=== PATIENT | female | born 1975 | race Hispanic/Latino ===

== ENCOUNTER 2024-01-30 22:43 | Emergency (ER) | payer OTHER, SELFPAY ==
[2024-01-30 22:44] VITALS: BP 136/100
[2024-01-30 22:58] VITALS: BP 123/83
[2024-01-30 23:00] VITALS: BP 127/86
--- NOTE | 2024-01-30 23:12 | ED.GENMED ---
History of Present Illness
<MARGARETH Watts - Last Filed: 01/30/24 23:45>
General
Chief Complaint: Chest Pain
Source: patient and spouse
Time Seen by Provider: 01/30/24 22:52
Travel History
Have you had any contact with someone who has COVID-19?: No
Do you have any symptoms of coronavirus? Fever > 100 degrees, chills, cough, shortness of breath, sore throat, loss of taste or smell, muscle aches, or headache?: No
History of Present Illness
History of Present Illness:
48 year old female with no significant past medical hx who presents with 3 days of worsening chest pain. Pain is located to midsternum and along the L chest under the breast. Pain is described as a burning sensation and is currently at 8/10 in
strength. Pain worsens with movement and lifting objects. Pt takes Tylenol and Ibuprofen. Last dose of Ibuprofen 500 mg was at 1700 today with moderate relief of her symptoms. Denies SOB, palpitations, dizziness, head ache, diaphoresis, numbness,
tingling, abdominal pain, n/v/d, fevers/chills, cough, URI symptoms, recent illness. Denies fall or trauma to the chest. Pt notes she was having intermittent chest pains [id number] infection about a 2 years ago and had symptoms of SOB. She had a
network systems administrator appointment about 4 months ago at [facility] and had a stress test that was normal. She sates this chest pain feels different. She is otherwise healthy and does not take any medications. Pt works at a [employer] shop and does not
do heavy lifting. Pt is Bengali-speaking. is present and is translating.
Review of Systems
<MARGARETH Watts - Last Filed: 01/30/24 23:45>
Review of Systems
Allergies reviewed?: Yes
All Other Systems: ROS reviewed and negative except as documented in HPI and ROS
Constitutional: Reports no symptoms
EENT: Reports no symptoms
Respiratory: Reports no symptoms
Cardiac: Reports chest pain
ABD/GI: Reports no symptoms
: Reports no symptoms
Musculoskeletal: Reports no symptoms
Skin: Reports no symptoms
Neurological: Reports no symptoms
Endocrine: Reports no symptoms
Hematologic/Lymphatic: Reports no symptoms
Psychiatric: Reports no symptoms
Phy Exam
<ST MacPA - Last Filed: 01/30/24 23:45>
General Physical Exam
General Presentation: well appearing and no apparent distress
General age: appears stated age
General Skin: warm and dry
General Habitus: normal
General Mental: alert
General Hydration: appears well hydrated
Cardiovascular Exam
Cardiovascular Exam: regular rate/rhythm, no edema, no gallop, no murmur and normal peripheral pulses
Pulmonary Exam
Pulmonary Exam: lungs clear, no respiratory distress, no rales, no crackles, no rhonchi, no wheezing, no cough and other (reproducible chest tenderness between 3rd and 4th intercostal space)
Gastrointestinal Exam
Gastrointestinal Exam: non tender, soft, no pulsatile mass and non distended
Psychiatric Exam
Psychiatric Exam: normal mood/affect
Scores
<Mary Ramires DO - Last Filed: 01/31/24 01:13>
Heart Score for Chest Pain Patients
STEMI patient?: No
History: Slightly or Non-Suspicious
ECG: Normal
Age: >45 - <65 years
Risk Factors: No Risk Factors
Troponin: </= Normal Limit
Heart Score for Chest Pain Patients: 1
Heart Score Risk: 2.5% MACE over next 6 weeks
PE Wells Score
Symptoms of DVT: No
No alternative diagnosis better explains the illness: No
Tachycardia with pulse > 100: No
Immobilization (>=3 days) or surgery within previous 4 weeks: No
Prior history of DVT or pulmonary embolism: No
Presence of hemoptysis: No
Presence of malignancy: No
Pulmonary Embolism Risk Score: 0
Probability of PE: Pt is low risk
PERC Rule Criteria
Age <50 years: Yes
HR <100 bpm: Yes
Room air oxygen sat >94%: Yes
History of DVT or PE: No
Recent trauma or surgery: No
Hemoptysis: No
Exogenous estrogen: No
Clinical signs suggestive of DVT: No
: No
Considered low risk for PE: Yes
PERC Score: 0
PE can be excluded by PERC: Yes
Course
<MARGARETH Watts - Last Filed: 01/30/24 23:45>
Orders/Labs/Results
Orders:
Orders
01/30/24 22:48
Electrocardiogram (*1) Urgent
Reason for Study: Chest Pain
EKG- Treatment ONCE
01/30/24 23:22
Cardiac Monitoring- Treatment ONCE
IV Insert/Care/Rem.- Treatment PRN
CR Chest - 2 Views Urgent
Comment:
Reason For Exam: respiratory distress
O2 Therapy [RESP] Urgent
Titrate/Wean O2 to maintain O2 sat greater than (%): 93
Special Instructions: TO MAINTAIN CONTINUOUS O2 SATS >/= 93%
Pulse Ox/cont/shift [RESP] Urgent
Quantity: 1
Special Instructions: continuous pulse ox
01/30/24 23:25
Complete Blood Count/With Diff Urgent
Comprehensive Metabolic Panel Urgent
Troponin I Urgent
01/31/24 00:12
Ketorolac [Toradol] 30 mg IV NOW STA
Abnormal Lab Results
01/30/24
23:25
Creatinine 0.4 L mg/dL
(0.6-1.0)
ALT 46 H U/L
(0-35)
01/30/24 23:25
01/30/24 23:25
Vital Signs
Initial and Last Documented VS:
Initial Vital Signs
Temp Pulse Resp BP Pulse Ox
98.2 F 88 20 136/100 100
01/30/24 22:44 01/30/24 22:44 01/30/24 22:44 01/30/24 22:44 01/30/24 22:44
Last Documented Vital Signs
Temp Pulse Resp BP Pulse Ox
98.2 F 88 20 136/100 100
01/30/24 22:44 01/30/24 22:44 01/30/24 22:44 01/30/24 22:44 01/30/24 22:44
<Mary Ramires, DO - Last Filed: 01/31/24 01:13>
Orders/Labs/Results
Orders:
Orders
01/30/24 22:48
Electrocardiogram (*1) Urgent
Reason for Study: Chest Pain
EKG- Treatment ONCE
01/30/24 23:22
Cardiac Monitoring- Treatment ONCE
IV Insert/Care/Rem.- Treatment PRN
CR Chest - 2 Views Urgent
Comment:
Reason For Exam: respiratory distress
O2 Therapy [RESP] Urgent
Titrate/Wean O2 to maintain O2 sat greater than (%): 93
Special Instructions: TO MAINTAIN CONTINUOUS O2 SATS >/= 93%
Pulse Ox/cont/shift [RESP] Urgent
Quantity: 1
Special Instructions: continuous pulse ox
01/30/24 23:25
Complete Blood Count/With Diff Urgent
Comprehensive Metabolic Panel Urgent
Troponin I Urgent
01/31/24 00:12
Ketorolac [Toradol] 30 mg IV NOW STA
Abnormal Lab Results
01/30/24
23:25
Creatinine 0.4 L mg/dL
(0.6-1.0)
ALT 46 H U/L
(0-35)
01/30/24 23:25
01/30/24 23:25
Vital Signs
Initial and Last Documented VS:
Initial Vital Signs
Temp Pulse Resp BP Pulse Ox
98.2 F 88 20 136/100 100
01/30/24 22:44 01/30/24 22:44 01/30/24 22:44 01/30/24 22:44 01/30/24 22:44
Last Documented Vital Signs
Temp Pulse Resp BP Pulse Ox
98.2 F 88 20 136/100 100
01/30/24 22:44 01/30/24 22:44 01/30/24 22:44 01/30/24 22:44 01/30/24 22:44
<MARGARETH Watts - Last Filed: 01/30/24 23:45>
MDM/Problems Addressed
Differential Diagnosis Includes:
muscles strain, costochondritis, ACS
MDM/Problems Addressed:
48 year old female who presents with 3 days of worsening chest pain.
<MARGARETH Watts - Last Filed: 01/30/24 23:45>
*Critical Care Note
Total Time (30-74mins, 75-104mins- exclusive of procedures): Not Applicable
<Mary Ramires DO - Last Filed: 01/31/24 01:13>
*Radiology
Radiology exam reviewed: preliminary read by ED provider (Chest x-ray is unremarkable.)
*Pulse Oximetry
Patient hypoxic: no
*EKG
Interpreted by ED Provider?: Yes
Interpretation: normal
Comparison EKG: no comparison EKG present
Rate: normal
Rhythm: sinus
[place]: normal axis
Interval: normal interval
QRS Pattern: normal QRS
Ischemia: no ischemia
*Assistant Department Manager Interpretation
Rate: normal
Interpretation: normal
Rhythm: sinus
ED Attending Note
<MARGARETH Watts - Last Filed: 01/30/24 23:45>
-
Portions of this chart may have been created with voice recognition software.� Occasional wrong word or��sound alike� substitutions may have occurred due to the inherent limitations of voice recognition software.
<Mary Ramires DO - Last Filed: 01/31/24 01:13>
ED Attending Note
Patient seen and examined by attending physician: Yes
I performed the substantive portion of visit, reviewed & personally made and approve the management plan that is documented in note by myself or DEE.: Yes
I performed a history and physical exam of patient and discussed management with resident, I reviewed resident's note and agree with documented findings and plan of care.: Yes
ED Attending Note:
This is a 48-year-old woman who has several year history of intermittent chest pain reportedly undergoing unremarkable stress test approximately 4 months ago.
She presents with her with complaints of 3 to 4-day history of left parasternal chest pain radiating to her left chest that is worse with movement of her trunk, worse with direct palpation over left parasternal region. Current chest pain
feels different from previous episodes of chest pain prompting ED visit. She has been taking Tylenol versus ibuprofen with moderate relief. Her last dose was 5 PM. She denies heavy lifting but she does remain quite active working and cleaning at
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 She denies cough nor shortness of breath, no nausea nor vomiting, no neck nor back pain, no abdominal pain.
No family history of coronary artery disease nor thromboembolism and patient has no history of such.
No recent travel, she denies leg pain or swelling. She takes no prescription medications on a daily basis.
GENERAL: 48-year-old woman appears her stated age, bright and alert, pleasant, appears in no acute distress. is accompanying.
EYE: anicteric
NECK: Supple, nontender, no meningismus, no significant adenopathy.
ENT: oral mucosa is moist. No rhinorrhea.
CARDIAC: Regular rate and rhythm. no murmur. Mild to moderate tenderness left parasternal region as well as tenderness left mid chest. Palpation seems to exactly reproduce patient's pain complaint. There is no tenderness to the left breast, no
palpable breast masses.
LUNGS: Clear breath sounds bilaterally, no acute respiratory distress, no wheezes/rales/rhonchi
ABDOMEN: Soft, nondistended, without focal tenderness, no r/g, no cvat. normoactive BS.
NEUROLOGICAL: Alert and oriented x3, no focal neuro deficits. Gait is steady.
SKIN: Warm and dry, normal color, skin intact. No rash.
MUSCULOSKELETAL: No C/C/E. peripheral pulses are full and equal b/l. No palpable tenderness.
PSYCH: Normal and appropriate interaction.
Patient presents with left-sided chest pain, reproducible in nature with palpation and with movement concerning for musculoskeletal/costochondritis pain. Other consideration is ACS. Pneumonia, pleurisy.
No risk factors for thromboembolism and no family history of such.
PERC score 0. PE Wells score of 0.
EKG is unremarkable showing normal sinus rhythm, normal axis, normal intervals, no acute ST-T wave abnormalities.
Will check labs including troponin.
Chest x-ray is unremarkable showing clear lung galan, normal heart size. No evidence of infiltrate nor pleural effusion.
If labs are unremarkable will trial a dose of Toradol.
01/31/2024 0108 AM
Labs are unremarkable including negative troponin.
Patient feeling improved after IV Toradol.
Recommend a course of diclofenac for costochondritis along with local warm compresses, avoidance of lifting and prompt follow-up with PCP for recheck.
Return precautions discussed.
Discharge Plan
Departure
Patient Disposition: Home (Routine Discharge)
Date of Disposition: 01/31/24
Time of Disposition: 01:10
Patient with high blood pressure during this ER visit?: No
Condition: Good
Discharge Problem:
Acute costochondritis
Instructions: Costochondritis, Chest Pain PCP Follow Up
Prescriptions:
New
diclofenac sodium 75 mg tablet,delayed release (DR/EC)
75 mg PO BID PRN (Reason: pain) Qty: 30 0RF
Referrals:
Alaina Sotomayor MD [Family Provider] - Call in 1-3 days for appt
Interventions
Interventions:
*Risk Screen - Suicide Last Done: 01/30/24 23:16
*General Assessment Last Done: 01/30/24 23:16
*Neglect/Abuse Screening Last Done: 01/30/24 22:44
ED- Fall Risk Assessment Last Done: 01/30/24 23:16
*ED COVID-19 Vaccine History Last Done: 01/30/24 23:16
ED- Cardiac Assessment Last Done: 01/30/24 23:16
Discharge Date and Time
Print Language: [place]
[2024-01-30 23:22] VITALS: BMI 26.8
[2024-01-30 23:39] LABS: % Basophils 0.6 % (0-2); % Eosinophils 0.7 % (0-6); % Immature Granulocytes 0.3 % (0-0.5); % Lymphocytes 37.8 % (20.5-51.1); % Monocytes 6.4 % (1.7-9.3); % Neutrophils 54.2 % (42.2-75.2); Absolute Eosinophils 0.1 10^3/uL (0-0.7); Absolute Lymphocytes 2.6 10^3/uL (1.2-3.4); Absolute Monocytes 0.4 10^3/uL (0.1-0.6); Absolute Neutrophils 3.7 10^3/uL (1.4-6.5); Hematocrit 37.5 % (37.0-47.0); Hemoglobin 13.3 g/dL (12.0-16.0); Mean Corp Hgb Conc. 35.5 g/dL (33.0-37.0); Mean Corpuscular Hgb 30.9 pg (27.0-31.0); Mean Platelet Volume 9.6 fL (7.4-10.4); Nucleated Red Blood Cells % 0 %; Platelet Count 254 10^3/uL (130-400); Red Blood Cell Count 4.31 10^6/uL (4.20-5.40); Red Cell Dist. Width 12.1 % (11.5-14.5); White Blood Cell Count 6.9 10^3/uL (4.8-10.8)
[2024-01-30 23:53] LABS: ALT (SGPT) 46 U/L (0-35); AST (SGOT) 31 U/L (14-36); Albumin 4.4 g/dl (3.5-5.0); Alkaline Phosphatase 79 U/L (38-126); Blood Urea Nitrogen 13 mg/dl (7-17); Calcium 9.3 mg/dl (8.4-10.2); Carbon Dioxide 23 mmol/L (22-30); Chloride 107 mmol/L (98-107); Estimated Creatinine Clearance 101 ml/min; Glucose 97 mg/dl (70-99); Potassium 3.9 mmol/L (3.5-5.1); Sodium 140 mmol/L (135-145); Total Bilirubin 0.4 mg/dl (0.2-1.3); Total Protein 7.4 g/dl (6.3-8.2); eGFR > 60.00
[2024-01-31] VITALS: BP 114/72
[2024-01-31 00:03] LABS: Troponin I < 0.012 ng/ml
[2024-01-31] MEDS: TORADOL 30 MG IV (00:17)
[2024-01-31 01:00] VITALS: BP 97/86
[2024-01-31 01:23] VITALS: BP 109/76
== END 2024-01-31 01:38 | disposition home or self-care (01) ==
LOC: EMR 22:43
PROVIDERS: EMERGENCY PHYSICIAN Emergency Medicine; FAMILY PHYSICIAN Family Medicine
DX: M94.0 Chondrocostal junction syndrome [Tietze] (principal); Z86.16 Personal history of COVID-19
CPT/HCPCS: 99284; 96374; 71046; 80053; 84484; 85025; 93005